=== PATIENT | male | born 1990 | race Hispanic/Latino ===

== ENCOUNTER 2017-05-10 07:48 | Emergency (ER) | payer BC ==
[2017-05-10] MEDS ORDERED: Adacel (T-DAP) 0.5 ML VIAL ONE (07:54)
[2017-05-10] MEDS ORDERED: Bupivacaine 0.5% 10 ML VIAL ONE (08:17)
--- NOTE | 2017-05-10 12:01 | RAD ---
RIGHT HAND 3 VIEWS: Date: 05/10/17 Fracture of the distal 5th metacarpal shaft is present with significant volar angulation of the metac arpal head. The remainder of the hand and wrist appear intact. IMPRESSION: Boxer's fracture. POS: HOME
--- NOTE | 2017-05-10 12:03 | RAD ---
RIGHT HAND 3 VIEWS POST REDUCTION: Date: 05/10/17 Post reduction films show improvement in the angulation of the fracture of the distal 5th metacarpal. There is still slight volar angulation and slight radial side angulation of the distal fragment. Pat ient has been put in a splint. IMPRESSION: Improvement in angulation of boxer's fracture. POS: HOME
== END 2017-05-10 09:00 | disposition home or self-care (01) ==
LOC: BURERS 07:48
DX: S62.336A Displaced fracture of neck of fifth metacarpal bone, right hand, initial encounter for closed fracture (principal); F90.9 Attention-deficit hyperactivity disorder, unspecified type; W22.8XXA Striking against or struck by other objects, initial encounter
CPT/HCPCS: 26605; 90471; 90715; J3490

== ENCOUNTER 2020-09-24 22:33 | Emergency (ER) | payer BC, SELFPAY ==
[~2020-09-24 22:33] MED LIST: Iopamidol 370 76% 100 ML VIAL ONE
[2020-09-24] MEDS ORDERED: Ondansetron PF 4 MG/2 ML Vial ONE (23:02)
[2020-09-24] MEDS ORDERED: Fentanyl 100 MCG/2 ML VIAL ONE (23:02)
[2020-09-24 23:09] LABS: #Basophils 0.3 thou/uL (0.0-0.2); #Eosinphils 1.7 thou/uL (0.0-0.7); #Lymphocytes 4.3 thou/uL (1.20-3.40); #Monocytes 1.1 thou/uL (0.11-0.59); #Neutrophils 6.6 thou/uL (1.40-6.50); %Basophils 2.1 % (0.0-1.0); %Eosinophils 11.9 % (0.0-10.0); %Lymphocytes 30.8 % (21.0-51.0); %Monocytes 8.1 % (0.0-10.0); %Neutrophils 47.1 % (42.0-75.0); Hemoglobin 14.8 g/dL (14.0-18.0); Mean Corpuscular HGB CONC 34.2 g/dL (32.0-36.0); Mean Corpuscular Hemoglobin 32.8 pg (27.0-31.0); Mean Corpuscular Volume 95.9 fL (78.0-98.0); Mean Platelet Volume 6.4 fL (7.4-10.4); Platelet Count 337 thou/uL (130-400); Red Blood Cell (RBC) Count 4.52 mill/uL (4.70-6.10)
[2020-09-24 23:21] LABS: ALT (SGPT) 25 U/L (8-55); AST (SGOT) 20 U/L (5-34); Albumin 4.4 g/dL (3.5-5.0); Alkaline Phosphatase 81 U/L (40-110); Anion Gap 17 mmol/L (10-20); BUN (Urea Nitrogen) 14 mg/dL (8.9-20.6); Calc. Creatinine Clearance 0 mL/min (70-130); Carbon Dioxide 22 mmol/L (22-29); Chloride 101 mmol/L (98-107); Globulin 2.5 g/dL (2.4-3.5); Glucose 96 mg/dL (70-105); Lipase 25 U/L (8-78); Potassium 3.3 mmol/L (3.5-5.1); Protein, Total 6.9 g/dL (6.0-8.3); Sodium 137 mmol/L (136-145)
[2020-09-25] MEDS ORDERED: Ketorolac Tromethamine 30 MG/ML VIAL ONE (00:10)
[2020-09-25 00:14] LABS: Amphetamine Not Detected (NotDetected); Barbiturates Screen Not Detected (NotDetected); Benzodiazepine Screen Not Detected (NotDetected); Cocaine Metabolite Screen Not Detected (NotDetected); Medtox Control Line Valid? VALID (VALID); Methadone Not Detected (NotDetected); Methamphetamine Not Detected (NotDetected); Opiate Screen Not Detected (NotDetected); Oxycodone Screen Not Detected (NotDetected); Phencyclidine (PCP) Not Detected (NotDetected); THC/Cannabinoid Screen Detected (NotDetected); Tricyclic Screen Not Detected (NotDetected)
[2020-09-25 00:18] LABS: Bilirubin Negative (Negative); Blood, Urine Negative (Negative); Clarity Clear (Clear); Glucose, Urine (Dipstick) Negative (Negative); Ketone, Urine Negative (Negative); Leukocyte Negative (Negative); Nitrite Negative (Negative); Protein, Urine (Dipstick) Negative (Neg-Trace); Urobilinogen 0.2 mg/dL (Less than 2)
== END 2020-09-25 00:45 | disposition short-term general hospital (02) ==
LOC: BURERS 22:33
DX: R10.31 Right lower quadrant pain (principal)
CPT/HCPCS: 74177; 80053; 80306; 81003; 83690; 85025; 96374; 96375; J1885; J2405; J3010; Q9967

== ENCOUNTER 2020-09-25 20:24 | Emergency (ER) | payer SELFPAY ==
[2020-09-25 21:52] LABS: ALT (SGPT) 24 U/L (8-55); AST (SGOT) 20 U/L (5-34); Albumin 4.4 g/dL (3.5-5.0); Alkaline Phosphatase 62 U/L (40-110); Anion Gap 17 mmol/L (10-20); BUN (Urea Nitrogen) 6 mg/dL (8.9-20.6); Bilirubin, Total 1.5 mg/dL (0.2-1.2); Calc. Creatinine Clearance 0 mL/min (70-130); Calcium 9.2 mg/dL (7.8-10.44); Carbon Dioxide 21 mmol/L (22-29); Chloride 107 mmol/L (98-107); Globulin 2.3 g/dL (2.4-3.5); Glucose 116 mg/dL (70-105); Lipase 34 U/L (8-78); Potassium 3.3 mmol/L (3.5-5.1); Protein, Total 6.7 g/dL (6.0-8.3); Sodium 142 mmol/L (136-145)
[2020-09-25 22:01] LABS: Bilirubin Negative (Negative); Blood, Urine Negative (Negative); Clarity Clear (Clear); Glucose, Urine (Dipstick) Negative (Negative); Ketone, Urine Trace mg/dL (Negative); Leukocyte Negative (Negative); Nitrite Negative (Negative); Protein, Urine (Dipstick) Negative (Neg-Trace); Specific Gravity, Urine 1.015 (1.005-1.030); pH, Urine 7.5 (5.0-9.0)
[2020-09-25] MEDS ORDERED: Lorazepam 2 MG/ML VIAL ONE (22:01)
[2020-09-25 22:02] LABS: Amphetamine Not Detected (NotDetected); Barbiturates Screen Not Detected (NotDetected); Benzodiazepine Screen Not Detected (NotDetected); Cocaine Metabolite Screen Not Detected (NotDetected); Medtox Control Line Valid? VALID (VALID); Methadone Not Detected (NotDetected); Methamphetamine Not Detected (NotDetected); Opiate Screen Detected (NotDetected); Oxycodone Screen Not Detected (NotDetected); Phencyclidine (PCP) Not Detected (NotDetected); THC/Cannabinoid Screen Detected (NotDetected); Tricyclic Screen Not Detected (NotDetected)
[2020-09-25 22:06] LABS: Eosinophils 1 % (0-10); Hemoglobin 14.4 g/dL (14.0-18.0); Lymphocytes 16 % (21-51); MDiff Complete? YES; Mean Corpuscular HGB CONC 33.5 g/dL (32.0-36.0); Mean Corpuscular Hemoglobin 32.6 pg (27.0-31.0); Mean Corpuscular Volume 97.2 fL (78.0-98.0); Mean Platelet Volume 6.6 fL (7.4-10.4); Monocytes 6 % (0-10); Neutrophil 76 % (42-75); Platelet Count 317 thou/uL (130-400); Platelet Morphology Comment Appears Adequate; RBC Morphology Normal; Red Blood Cell (RBC) Count 4.42 mill/uL (4.70-6.10); Small Platelets SLIGHT; White Blood Cell (WBC) Count 10.8 thou/uL (4.8-10.8)
== END 2020-09-25 23:11 | disposition home or self-care (01) ==
LOC: BURERS 20:24
DX: R10.84 Generalized abdominal pain (principal); F41.9 Anxiety disorder, unspecified
CPT/HCPCS: 80053; 80306; 83690; 84443; 85025; 93005; 96374; J2060